=== PATIENT | female | born 1950 | race Caucasian/White ===

== ENCOUNTER 2018-11-07 02:23 | Inpatient (IN) | payer MEDICARE ==
[~2018-11-07] VITALS: Ht 160 cm; Wt 63.5 kg
--- NOTE | 2018-11-07 02:40 | NUR ---
Admitted a 68 y/o female from [facility]. Patient on voluntary hold, c/o increase depression and suicidal ideation with plan to OD. Upon face to face evaluation, patient presents as alert and oriented x 4, calm, cooperative, withdrawn, teary eyed and patient stated that she just wished that she will stop breathing and be with her daughter who last July. Patient also stated that she is hearing the voices of her daughter trying to tell her something that she should have told when she was still alive. Patient contracted for safety and seeking helf to prevent her from hurting herself. Per patient, she also had history of overdose 2 years ago. Patient arrived via gurney with 2 persons assist. Patient assisted to the room, changed to clean gown. Skin and body assessment done. Pictures taken and placed in chart. Patient has difficulty walking, PT eval triggered. Explained the paper works and patient signed the consents. Informed of visiting hours and unit policies. Belongings and contraband checked. Q15 min checks initiated. Care plan started. Vital signs checked and recorded. Patient's rights discussed, guide to prescription meds handbook provided. Patient advised of the hold. MRSA specimen collected. Notified Dr. Aaron of the admission. Will monitor patient for mood, safety and behavior. Will endorse to the day shift.
[2018-11-07] MEDS ORDERED: clonazePAM 0.5 MG TABLET PO PRN ×2 (03:30→07:30)
[2018-11-07] MEDS ORDERED: MAGNESIUM HYDROXIDE 30 ML UDC PO PRN (03:30)
[2018-11-07] MEDS ORDERED: MAG HYDROX/AL HYDROX/SIMETH 30 ML UDC PO PRN (03:30)
[2018-11-07] MEDS ORDERED: ACETAMINOPHEN 325 MG TABLET PO PRN (03:30)
[2018-11-07 03:59] VITALS: BP 140/71
[2018-11-07] MEDS ORDERED: IBUP-1953 PO (04:29)
--- NOTE | 2018-11-07 06:49 | NUR ---
GPS RN NOTE: NOTIFIED LAZARO (DAUGHTER) OF THE PATIENT ADMISSION. VISITING POLICY EXPLAINED.
[2018-11-07 08:00] VITALS: BP 131/70
[2018-11-07] MEDS: ESCITALOPRAM OXALATE (10 MG) 10 MG TABLET PO SCH (12:52)
[2018-11-07 16:00] VITALS: BP 111/69
[2018-11-07 20:00] VITALS: BP 137/54
[2018-11-07] MEDS: ARIPIPRAZOLE 5 MG TABLET PO SCH (22:10)
[2018-11-08 06:52] LABS: BASOPHILS % (AUTO) 0.6 % (0.0-2.0); EOSINOPHILS % (AUTO) 2.9 % (0.0-6.0); HEMATOCRIT 39 % (33-45); LYMPHOCYTES # (AUTO) 2.2 /CMM (0.8-4.8); LYMPHOCYTES % (AUTO) 31.1 % (20.0-44.0); MEAN CORPUSCULAR HGB CONC 34 g/dl (31.0-36.0); MEAN CORPUSCULAR VOLUME 90 fL (82-100); MONOCYTES # (AUTO) 0.5 /CMM (0.1-1.30); MONOCYTES % (AUTO) 7.3 % (2.0-12.0); NEUTROPHILS # (AUTO) 4.1 /CMM (1.8-8.9); NEUTROPHILS % (AUTO) 58.1 % (43.0-81.0); PLATELET COUNT (AUTO) 313 /CMM (150-450); RED BLOOD CELL COUNT(AUTO) 4.28 MIL/uL (4.0-5.2)
[2018-11-08 07:02] LABS: ALBUMIN 3.3 g/dL (3.4-5.0); BILIRUBIN,TOTAL 0.6 mg/dL (0.2-1.0); CALCIUM, SERUM 8.6 mg/dL (8.5-10.1); CREATININE 0.8 mg/dL (0.6-1.3); POTASSIUM 4.1 mmol/L (3.5-5.1); TOTAL PROTEIN, SERUM 6.7 g/dL (6.4-8.2)
[2018-11-08 07:07] LABS: CHOLESTEROL 179 mg/dL (<200); HDL CHOLESTEROL 48 mg/dL (40-60); LDL 105 mg/dL (0-99); TRIGLYCERIDES 137 mg/dL (30-150)
[2018-11-08 08:00] VITALS: BP 137/70
[2018-11-08] MEDS: ESCITALOPRAM OXALATE (10 MG) 10 MG TABLET PO SCH (08:28)
--- NOTE | 2018-11-08 15:08 | NUR ---
SW contacted pts daughter Rhoda [phone] and discussed pts treatment plan and discharge plan. SW also provided daughter with pts diagnosis and medication list. Daughter agreed with board and care placement and treatment plan.
--- NOTE | 2018-11-08 15:10 | NUR ---
JM faxed clinical information to Tian, placement sales support consultant at [facility] P: [phone] F: [phone].
--- NOTE | 2018-11-08 15:20 | NUR ---
GROUP NOTE: SW prompted pt to participate in group but pt refused stating "I just want to stay in my room."
[2018-11-08 16:00] VITALS: BP 114/67
[2018-11-08 19:48] VITALS: BP 97/50
[2018-11-08] MEDS: ARIPIPRAZOLE 5 MG TABLET PO SCH (21:07)
[2018-11-09 08:00] VITALS: BP 155/79
[2018-11-09] MEDS: ESCITALOPRAM OXALATE (10 MG) 10 MG TABLET PO SCH (08:57)
--- NOTE | 2018-11-09 09:13 | NUR ---
INITIAL DISCHARGE PLAN: Patient wishes to be discharged to a board and care. SW will help form a safe and proper discharge in collaboration with pt and MD.
--- NOTE | 2018-11-09 13:30 | NUR ---
RN SPOKE WITH DR. HOWARD AND INFORMED HIM TO CONTACT PT'S DTR.
[2018-11-09 16:00] VITALS: BP 140/66
--- NOTE | 2018-11-09 16:22 | NUR ---
Amparo Lynn, Director at [facility] [address] [place] [address] [phone] came on this present day to assess pt. Pt met with her and agreed with placement.
--- NOTE | 2018-11-09 16:59 | NUR ---
Group note: Pt attended a group session on 11/09/18 at 3PM discussing the importance of support systems and how they have impacted their lives. Pt was engaged and attentive but she did not participate. Pt did not feel comfortable sharing but listened to what her peers had to say.
[2018-11-09 20:26] VITALS: BP 129/58
[2018-11-09] MEDS: TEMAZEPAM 7.5 MG CAPSULE PO PRN (21:38)
[2018-11-09] MEDS: ARIPIPRAZOLE 5 MG TABLET PO SCH (21:38)
[2018-11-10 08:00] VITALS: BP 129/68
[2018-11-10] MEDS: ESCITALOPRAM OXALATE (10 MG) 10 MG TABLET PO SCH (09:09)
--- NOTE | 2018-11-10 14:58 | NUR ---
GROUP NOTE: Pt attended group on this present day, group topic was; "stress management and how stress has impacted your life and your current hospitalization." S: "I've had a stress test and it was off the roof its affected my body, my heart, and my thinking. There are different things that affect me but I don't want to share but that is why I am here because it was too much for me to handle." O: Pt appeared anxious. It appeared that pt was holding her tears as she would get shocked up when speaking about thee relationship between her and her daughter. A: Pt gained awareness of her stressors and ways to deal with them positively. Pt stated that she was going to continue therapy and also make sure to take her medication once discharged to her new Independent Living. P: Pt will continue milieu treatment and medication stabilization.
[2018-11-10 16:00] VITALS: BP 144/81
--- NOTE | 2018-11-10 18:00 | NUR ---
cooperative with no behavior issues.
[2018-11-10 20:00] VITALS: BP 116/65
[2018-11-10] MEDS: TEMAZEPAM 7.5 MG CAPSULE PO PRN (21:19)
[2018-11-10] MEDS: ARIPIPRAZOLE 5 MG TABLET PO SCH (21:19)
[2018-11-11 08:00] VITALS: BP 124/81
[2018-11-11] MEDS: ESCITALOPRAM OXALATE (10 MG) 10 MG TABLET PO SCH (08:14)
--- NOTE | 2018-11-11 15:29 | NUR ---
GROUP NOTE: Group was held on 11/11/18 at 2:00pm and the topic was goal setting. Pt was present but did not want to participate and stated, "My mind is a jumble I cant even speak right now."
[2018-11-11 16:00] VITALS: BP 124/83
[2018-11-11 20:00] VITALS: BP 156/78
[2018-11-11] MEDS: ARIPIPRAZOLE 5 MG TABLET PO SCH (21:11)
[2018-11-11] MEDS: TEMAZEPAM 7.5 MG CAPSULE PO PRN (21:14)
[2018-11-12 08:00] VITALS: BP 120/63
[2018-11-12] MEDS: ESCITALOPRAM OXALATE (10 MG) 10 MG TABLET PO SCH (09:00)
[2018-11-12 16:00] VITALS: BP 143/62
[2018-11-12 20:00] VITALS: BP 121/54
[2018-11-12] MEDS: ARIPIPRAZOLE 5 MG TABLET PO SCH (22:13)
[2018-11-13 08:00] VITALS: BP 139/67
[2018-11-13] MEDS: ESCITALOPRAM OXALATE (10 MG) 10 MG TABLET PO SCH (09:33)
[2018-11-13 16:00] VITALS: BP 145/90
[2018-11-13 19:36] VITALS: BP 102/58
[2018-11-13] MEDS: ARIPIPRAZOLE 5 MG TABLET PO SCH (21:13)
[2018-11-13] MEDS: TEMAZEPAM 7.5 MG CAPSULE PO PRN (21:36)
[2018-11-14 08:00] VITALS: BP 147/77
[2018-11-14] MEDS: ESCITALOPRAM OXALATE (10 MG) 10 MG TABLET PO SCH (09:03)
[2018-11-14 16:00] VITALS: BP 135/80
--- NOTE | 2018-11-14 18:17 | NUR ---
pt socializing well this shift with staff and roommate; appetite is adequate; pt had shower this shift.
[2018-11-14] MEDS: ARIPIPRAZOLE 5 MG TABLET PO SCH (20:34)
[2018-11-14] MEDS: TEMAZEPAM 7.5 MG CAPSULE PO PRN (20:34)
[2018-11-14 21:04] VITALS: BP 114/67
[2018-11-15 08:00] VITALS: BP 132/58
[2018-11-15] MEDS: ESCITALOPRAM OXALATE (10 MG) 10 MG TABLET PO SCH (08:34)
--- NOTE | 2018-11-15 09:19 | NUR ---
JM contacted Amparo Lynn, Director at [facility] [phone] and left a voicemail informing her pt is discharging tomorrow Thursday11/16/18. JM requested a call back to coordinate transportation.
--- NOTE | 2018-11-15 12:01 | NUR ---
SW received a call from pts sister Tabitha [phone] who requested discharge information. SW received approval from pt to disclose discharge information to pts sister. SW informed sister that pt is discharging tomorrow 11/16/[address] [facility].
--- NOTE | 2018-11-15 15:19 | NUR ---
GROUP NOTE: Pt attended group therapy on 11/15/18 at 2:00pm and discussed discharge for tomorrow 11/16/18. S: "I'm excited to be leaving tomorrow I just need the information I don't know the name or the number or how I'm suppose to pay." O: Pt appeared in a euthymic mood with congruent affect. Pt was a bit anxious and maintained good eye contact. A: Pt expressed intense feelings of being ready to be discharged and getting connected to mental health services. P: Pt will continue medication compliance.
[2018-11-15 16:00] VITALS: BP 119/63
[2018-11-15 20:18] VITALS: BP 100/49
[2018-11-15] MEDS: ARIPIPRAZOLE 5 MG TABLET PO SCH (21:00)
[2018-11-15] MEDS: TEMAZEPAM 7.5 MG CAPSULE PO PRN (21:01)
--- NOTE | 2018-11-15 22:36 | NUR ---
SLEEPING Patient in bed, sleeping arouses easily. Compliant with medication. Safety checks continues.
--- NOTE | 2018-11-16 06:04 | NUR ---
END OF SHIFT NOTES Patient slept well with PRN Restoril, approximately 10.5 hours of sleep. Maintained safety.
[2018-11-16 08:00] VITALS: BP 117/65
[2018-11-16] MEDS: ESCITALOPRAM OXALATE (10 MG) 10 MG TABLET PO SCH (08:48)
--- NOTE | 2018-11-16 10:50 | NUR ---
DISCHARGE NOTE: : Pt will be discharged at 1:00pm via [facility] to [facility] [address] [facility] [address] . Pts sister Tabitha [phone] has been notified and agrees with discharge. Pts mood is euthymic with congruent affect. Pt denied suicidal/homicidal ideation and denied visual/auditory hallucinations. JM faxed home health referral to [facility] [address] [facility] [address] . Pt was given a referral to [facility] [id number] [place] [id number] and will present on Thursday11/17/18 at 9:00am for an intake appointment JM faxed clinical information to [phone]. JM also provided pt with a referral to [facility] Address: [id number] [place] [address] Phone: [phone]. The multidisciplinary exitcare form was done, printed, signed, and given to the patient.
--- NOTE | 2018-11-16 11:30 | NUR ---
JM faxed clinical information to Amparo Lynn, Director at [facility] [phone] .
--- NOTE | 2018-11-16 13:30 | NUR ---
GPS/RN-NOTES PATIENT DISCHARGE TO [facility] TODAY. DR. HOWARD (PSYCHIATRIST) AND MICHAEL ALFARO ( PRODUCTION OR PLANT ENGINEER) MADE AWARE OF THE DISCHARGE WITH ORDERS.PATIENT ALERT ORIENTED X4 AMBULATORY WITH STEADY GAIT. PATIENT DID NOT VERBALIZE SI/HI,DENIES VISUAL AUDITORY HALLUCINATIONS AT THE TIME OF THE DISCHARGE. ALL DISCHARGE MEDICATIONS WAS REVIEWED WITH THE PATIENT WITH UNDERSTANDING,RX WAS GIVEN TO HER.ALL DISCHARGE PAPERS WAS SIGN BY THE PATIENT INCLUDING BELONGING LIST. PATIENT WAS ADVISE TO CALL 911 IN CASE OF EMERGENCY.PATIENT LEFT THE UNIT IN STABLE CONDITION WITH ALL BELONGINGS. PATIENT LEFT VIA TAXI, SHE WAS ACCOMPANIED IN THE LOBBY FOR SAFETY.PER JM CEJA) PATIENT'S SISTER GANESH MADE AWARE OF THE DISCHARGE.
== END 2018-11-16 13:30 | disposition home or self-care (01) | DRG 885 ==
LOC: GPS 02:23
PROVIDERS: ADMIT Psychiatry & Neurology Psychiatry; ATTEND Nurse Practitioner Acute Care
DX: F31.30 Bipolar disorder, current episode depressed, mild or moderate severity, unspecified (principal); N17.0 Acute kidney failure with tubular necrosis; F79 Unspecified intellectual disabilities; N39.0 Urinary tract infection, site not specified; R45.851 Suicidal ideations; R51 Headache; Z59.0 Homelessness; F29 Unspecified psychosis not due to a substance or known physiological condition; E78.5 Hyperlipidemia, unspecified; Z98.1 Arthrodesis status; F10.21 Alcohol dependence, in remission; F41.9 Anxiety disorder, unspecified
CPT/HCPCS: 36415; 80053-TC; 80061-TC; 85025-TC; 87081-TC; 97116-TC; 97530-TC; A6403